=== PATIENT | female | born 1980 | race Caucasian/White ===

== ENCOUNTER 2017-01-24 07:09 | Emergency (ER) | payer BC ==
--- NOTE | 2017-01-24 07:42 | UC ---
Ear Complaint HPI - HPI Summary HPI Summary: 36 yo female with left otalgia x 1 1/2 weeks slight decreased hearing no URI symptoms has been using q-tips - History of Current Complaint Chief Complaint: UCEar Stated Complaint: LEFT EAR PAIN Time Seen by Provider: 01/24/17 07:31 Hx Obtained From: Patient Hx Last Menstrual Period: 2016 Onset/Duration: Gradual Onset, Lasting Weeks Severity Initially: Mild Severity Currently: Moderate Pain Intensity: 7 Pain Scale Used: 0-10 Numeric Aggravating Factors: Nothing Alleviating Factors: Nothing Associated Signs/Symptoms: Positive: Hearing Loss - Allergies/Home Medications Allergies/Adverse Reactions: Allergies Allergy/AdvReac Type Severity Reaction Status Date / Time Sulfamethoxazole Allergy Intermediate VANDANA Verified 01/24/17 07:25 w/Trimethoprim SWELLS [From Bactrim] PMH/Surg Hx/FS Hx/Imm Hx Previously Healthy: Yes Endocrine History Of: Denies: Diabetes, Thyroid Disease, Hyperthyroidism, Hypothyroidism, Dyslipidemia Cardiovascular History Of: Denies: Cardiac Disorders, Hypertension, Pacemaker/ICD, Myocardial Infarction , Congestive Heart Failure, Atrial Fibrillation, Deep Vein Thrombosis, Bleeding Disorders Respiratory History Of: Denies: COPD, Asthma, Bronchitis, Pneumonia, Pulmonary Embolism GI/ History Of: Reports: Kidney Stones Denies: Gastroesophageal Reflux, Ulcer, Gastrointestinal Bleed, Gall Bladder Disease, Diverticulitis, Renal Disease, Urosepsis Neurological History Of: Denies: TIA, CVA, Dementia, Seizures, Migraine Psychological History Of: Denies: Anxiety, Depression, Bipolar Disorder, Schizophrenia, Post Traumatic Stress Disorder Cancer History Of: Denies: Lung Cancer, Colorectal Cancer, Breast Cancer, Prostate Cancer, Cervical Cancer Other History Of: Negative For: HIV, Hepatitis B, Hepatitis C - Surgical History Surgical History: Yes Surgery Procedure, Year, and Place: . TONSILLECTOMY. ablation - Family History Known Family History: Positive: Hypertension Negative: Renal Disease, Blood Disorder - Social History Alcohol Use: Occasionally Substance Use Type: None Smoking Status (MU): Former Smoker When Did the Patient Quit Smoking/Using Tobacco: 10/2013 - Immunization History Most Recent Influenza Vaccination: JUN 2014 Review of Systems Constitutional: Negative Skin: Negative Eyes: Negative ENT: Ear Ache Respiratory: Negative Cardiovascular: Negative Gastrointestinal: Negative Genitourinary: Negative Motor: Negative Neurovascular: Negative Musculoskeletal: Negative Neurological: Negative Psychological: Negative All Other Systems Reviewed And Are Negative: Yes Physical Exam Triage Information Reviewed: Yes Appearance: Well-Appearing, No Pain Distress, Well-Nourished Vital Signs: Initial Vital Signs Temp 98.8 F 01/24/17 07:27 Pulse 80 01/24/17 07:27 Resp 16 01/24/17 07:27 BP 135/98 01/24/17 07:27 Pulse Ox 99 01/24/17 07:27 Eyes: Positive: Conjunctiva Clear ENT: Positive: Pharynx normal, TMs normal, Other: - left tragal tenderness/EAC narrow. Negative: Hearing grossly normal, Pharyngeal erythema, Nasal congestion , Nasal drainage, TM bulging, TM dull, TM red, Tonsillar swelling, Tonsillar exudate, Trismus, Muffled/hoarse voice Dental: Positive: Other: - left TMJ crepitus. Negative: Gross Decay/Caries @, Dental Fracture @ Neck: Positive: Nontender, No Lymphadenopathy Respiratory: Positive: Lungs clear, Normal breath sounds, No respiratory distress, No accessory muscle use Cardiovascular: Positive: RRR, No Murmur Musculoskeletal: Positive: ROM Intact, No Edema Neurological: Positive: Alert Skin Exam: Normal Ear Complaint Course/Dx - Differential Dx/Diagnosis Provider Diagnoses: left TMJ syndrome. left otitis externa Discharge - Discharge Plan Condition: Stable Disposition: HOME Prescriptions: Naproxen [Naproxen 500 MG TABS] 500 mg PO BID PRN #30 tab PRN Reason: Pain Neomyc/Polym/HC 1% OTIC SUSP* [Cortisporin Otic Susp 1%*] 4 drop LEFT EAR QID # 1 btl Patient Education Materials: Otitis Externa (ED), Temporomandibular Disorder ( ED) Referrals: No Primary Care Phys,NOPCP [Primary Care Provider] - Additional Instructions: see your MD in 2 weeks if hearing not back to normal Ice your left TMJ twice daily soft diet see your dentist in follow up if not better in 1-2 weeks
[2017-01-24 07:44] VITALS: BP 135/98
== END 2017-01-24 07:47 | disposition home or self-care (01) ==
LOC: UCCORT 07:09
DX: H60.92 Unspecified otitis externa, left ear (principal); M26.602 Left temporomandibular joint disorder, unspecified; Z88.2 Allergy status to sulfonamides; Z87.891 Personal history of nicotine dependence
CPT/HCPCS: 99212; G0463

== ENCOUNTER 2017-06-10 07:02 | Emergency (ER) | payer BC ==
--- NOTE | 2017-06-10 07:40 | UC ---
Throat Pain/Nasal Leonid HPI - HPI Summary HPI Summary: 36 yo female with a 2 day history of severe sore throat/weakness/poor oral intake/headache/myalgias and N/V - History of Current Complaint Chief Complaint: UCRespiratory Stated Complaint: SORE THROAT,HEADACHE,SWOLLEN NECK,BODYACHES Time Seen by Provider: 06/10/17 07:38 Hx Obtained From: Patient Hx Last Menstrual Period: n/a Onset/Duration: Gradual Onset, Lasting Days Severity: Severe Pain Intensity: 7 Pain Scale Used: 0-10 Numeric Cough: None Associated Signs & Symptoms: Positive: Fever Related History: Prior ENT Surgery, T & A - Epiglottits Risk Factors Epiglottis Risk Factors: Negative - Allergies/Home Medications Allergies/Adverse Reactions: Allergies Allergy/AdvReac Type Severity Reaction Status Date / Time Sulfamethoxazole Allergy Intermediate VANDANA Verified 06/10/17 07:21 w/Trimethoprim SWELLS [From Bactrim] Home Medications: Home Medications Acetaminophen TAB* [Tylenol TAB*] 1,000 mg PO Q6H PRN 06/10/17 [History Confirmed 06/10/17] PMH/Surg Hx/FS Hx/Imm Hx Previously Healthy: Yes Other History Of: Negative For: HIV, Hepatitis B, Hepatitis C - Surgical History Surgical History: Yes Surgery Procedure, Year, and Place: , uterine ablation. TONSILLECTOMY - Family History Known Family History: Positive: Hypertension Negative: Renal Disease, Blood Disorder - Social History Alcohol Use: Occasionally Substance Use Type: None Smoking Status (MU): Former Smoker When Did the Patient Quit Smoking/Using Tobacco: 10/2013 - Immunization History Most Recent Influenza Vaccination: JUN 2014 Review of Systems Constitutional: Fever, Chills, Fatigue Skin: Negative Eyes: Negative ENT: Sore Throat Respiratory: Negative Cardiovascular: Negative Gastrointestinal: Vomiting Genitourinary: Negative Motor: Negative Neurovascular: Negative Musculoskeletal: Myalgia Neurological: Headache Psychological: Negative All Other Systems Reviewed And Are Negative: Yes Physical Exam Triage Information Reviewed: Yes Appearance: Well-Appearing, No Pain Distress, Well-Nourished Vital Signs: Initial Vital Signs Temp 99.9 F 06/10/17 07:17 Pulse 106 06/10/17 07:17 Resp 24 06/10/17 07:17 BP 113/71 06/10/17 07:17 Vital Signs Reviewed: Yes Eyes: Positive: Conjunctiva Clear ENT: Positive: Hearing grossly normal, Pharyngeal erythema. Negative: Nasal congestion, Nasal drainage, Tonsillar swelling, Tonsillar exudate, Trismus, Muffled/hoarse voice Neck: Positive: Supple, Enlarged Nodes @ - (+++) ant cervical Respiratory: Positive: Lungs clear, Normal breath sounds, No respiratory distress Cardiovascular: Positive: RRR, No Murmur, Tachycardia Abdomen Description: Positive: Nontender, No Organomegaly, Soft Bowel Sounds: Positive: Present Neurological: Positive: Alert Psychological Exam: Normal Skin Exam: Normal Re-Evaluation - Re-Evaluation First Eval Re-Evaluation Time: 10:17 Change: Improved Comment: feels much better. pain decreased Throat Pain/Nasal Course/Dx - Differential Dx/Diagnosis Provider Diagnoses: strep throat. dehydration Discharge - Discharge Plan Condition: Stable Disposition: HOME Patient Education Materials: Strep Throat (ED) Forms: *Work Release Referrals: EMELINA Gonzales [Primary Care Provider] - Additional Instructions: recheck in 3 days if not better recheck sooner for worsening symptoms start amox in AM
[2017-06-10] MEDS ORDERED: cefTRIAXone VIAL(*) 1,000 MG in NS 0.9% 50 ML* 50 ML IVPB ONE (07:45)
[2017-06-10] MEDS ORDERED: NS 0.9% 1000 ML* 1,000 ML BOLUS ONE (07:45)
[2017-06-10] MEDS ORDERED: Dexamethasone IV* 4 MG/ML 1 ML (4 MG) IV SLOW PU ONE (07:46)
[2017-06-10] MEDS ORDERED: Ketorolac INJ* 30 MG/ML 1 ML VIAL IV ONE (07:46)
[2017-06-10] MEDS ORDERED: cefTRIAXone VIAL(*) 1,000 MG VIAL ONE (08:08)
[2017-06-10 10:34] VITALS: BP 123/74
== END 2017-06-10 10:43 | disposition home or self-care (01) ==
LOC: UCCORT 07:02
DX: J02.0 Streptococcal pharyngitis (principal); E86.0 Dehydration; Z88.2 Allergy status to sulfonamides; Z87.891 Personal history of nicotine dependence
CPT/HCPCS: 87651; 96361; 96365; 96375; 99212; G0463; J0696; J1100; J1885

== ENCOUNTER 2018-01-07 12:01 | Emergency (ER) | payer BC ==
--- OUTSIDE RECORDS SUMMARY | 2018-01-07 12:24 | XMS REPORT ---
:1980 External Reference #:[id number] Author Organization [facility] Address [address] [place] [address] Phone [phone] Care Team Providers Name Role Phone Krystal Fisher MD Care Team Information Research Professor Of Biostatistics Unavailable Krystal Fisher MD Primary Care Physician Unavailable Payers Type Date Identification Numbers Payment Provider Subscriber Commercial Policy Number: [id number] AMARJIT Ho PayID: [id number] [address] [place] [address] Commercial Expires: 2017 Policy Number: [id number] AMARJIT Ho PayID: [id number] [place] [address] Problems Description No Information Family History Date Family Member(s) Problem(s) Comments General None General Two brothers that are Diabetics Mother Heart Disease Social History Type Date Description Comments 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 every day Meclizine HCL / Active Tablets 25mg 60tabs 1 po qid Unknown 0000 prn Macrodantin / Hx Capsules 50mg Unknown 0000 - 2017 Nuvaring / Hx Ring 0.12-0.015 Unknown 0000 - mg/24HR 2017 Zofran / Hx Tablets 4mg 20tabs q6h prn Unknown 0000 - nausea 2017 Vital Signs Date Vital Result Comment 12/19/2017 Weight 158.12 lb Height 63 inches 5'3" BMI (Body Mass Index) 28.0 kg/m2 BP Systolic 149 mmHg BP Diastolic 86 mmHg Heart Rate 101 /min O2 % BldC Oximetry 99 % room air Body Temperature 99.8 F Pain Level 0 06/22/2010 Weight 113.00 lb Height 63 inches 5'3" BMI (Body Mass Index) 20.0 kg/m2 BP Systolic 118 mmHg BP Diastolic 64 mmHg Heart Rate 74 /min O2 % BldC Oximetry 98 % Body Temperature 97.1 F Results Description No Information Procedures Description No Information Encounters Type Date Location Provider CPT E/M Dx Office Visit 12/19/2017 2:00p [place] [id number] R42 J34.3 Office Visit 06/22/2010 11:00a [place] [address] 780.4 Plan of Care Future Appointment(s):01/11/2018 9:30 am - Nola Traylor NP at Main Office
--- OUTSIDE RECORDS SUMMARY | 2018-01-07 12:24 | XMS REPORT ---
:1980 External Reference #:[id number] Author Organization [facility] Address [address] [place] [address] Phone [phone] Care Team Providers Name Role Phone Krystal Fisher MD Care Team Information Configuration Management Specialist Unavailable Krystal Fisher MD Primary Care Physician Unavailable Payers Type Date Identification Numbers Payment Provider Subscriber Commercial Policy Number: [id number] AMARJIT Ho PayID: [id number] [address] [place] [address] Commercial Expires: 2017 Policy Number: [id number] AMARJIT Ho PayID: [id number] [address] [address] [place] [address] Problems Description No Information Family History Date Family Member(s) Problem(s) Comments General None Social History Type Date Description Comments 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 Cigarette Use currently smokes 1/2 Pack Daily ETOH Use Rarely consumes alcohol Recreational Drug Use Has Used In Past Allergies, Adverse Reactions, Alerts Date Description Reaction Status Severity Comments 06/22/2010 Bactrim active Tongue Swelling Medications Medication Date Status Form Strength Qnty SIG Indications Ordering Provider Meclizine HCL Active Tablets 25mg 60tabs 1 po qid Unknown 000 prn Macrodantin 0 Hx Capsules 50mg Unknown 000 - 018 Nuvaring 0 Hx Ring 0.12-0.015m Unknown 000 - g/24HR 018 Zofran 0 Hx Tablets 4mg 20tabs q6h prn Unknown 000 - nausea 018 Vital Signs Date Vital Result Comment 12/19/2017 [...] Location Provider CPT E/M Dx Office Visit 06/22/2010 11:00a [place] [address] 780.4 Plan of Care No Information Available
[2018-01-07 12:32] VITALS: BP 130/92
--- NOTE | 2018-01-07 12:43 | UC ---
Throat Pain/Nasal Leonid HPI - HPI Summary HPI Summary: Sore throat for 3 day has had fevers chills and cold sweats - History of Current Complaint Chief Complaint: UCRespiratory Stated Complaint: SORE THROAT,LOSS OF VOICE Time Seen by Provider: 01/07/18 12:24 Hx Obtained From: Patient Hx Last Menstrual Period: no menses since ablasion 2016 ?: No Onset/Duration: Sudden Onset, Lasting Days - 3, Still Present Severity: Moderate Pain Intensity: 6 Pain Scale Used: 0-10 Numeric Cough: None Associated Signs & Symptoms: Positive: Fever - Allergies/Home Medications Allergies/Adverse Reactions: Allergies Allergy/AdvReac Type Severity Reaction Status Date / Time MS Sulfamethoxazole Allergy Intermediate VANDANA Verified 06/10/17 07:21 w/Trimethoprim SWELLS [From Bactrim] Home Medications: Home Medications Ibuprofen TAB* [Advil TAB*] 600 mg PO Q6H PRN 01/07/18 [History Confirmed ] PMH/Surg Hx/FS Hx/Imm Hx Previously Healthy: Yes Other History Of: Negative For: HIV, Hepatitis B, Hepatitis C - Surgical History Surgical History: Yes Surgery Procedure, Year, and Place: , uterine ablation. TONSILLECTOMY - Family History Known Family History: Positive: Hypertension Negative: Renal Disease, Blood Disorder - Social History Occupation: Employed Full-time Lives: With Family Alcohol Use: Occasionally Substance Use Type: None Smoking Status (MU): Former Smoker When Did the Patient Quit Smoking/Using Tobacco: 10/2013 - Immunization History Most Recent Influenza Vaccination: JUN 2014 Review of Systems Constitutional: Fever, Chills, Fatigue Skin: Negative Eyes: Negative ENT: Sore Throat Respiratory: Negative Cardiovascular: Negative Gastrointestinal: Negative Genitourinary: Negative Motor: Negative Neurovascular: Negative Musculoskeletal: Negative Neurological: Headache Psychological: Negative Is Patient Immunocompromised?: No All Other Systems Reviewed And Are Negative: Yes Physical Exam Triage Information Reviewed: Yes Appearance: Well-Nourished, Ill-Appearing, Pain Distress Vital Signs: Initial Vital Signs Temp 98.2 F 01/07/18 12:24 Pulse 81 01/07/18 12:24 Resp 16 01/07/18 12:24 BP 130/92 01/07/18 12:24 Pulse Ox 100 01/07/18 12:24 Vital Signs Reviewed: Yes Eye Exam: Normal Eyes: Positive: Conjunctiva Clear ENT Exam: Normal ENT: Positive: Normal ENT inspection, Hearing grossly normal, Pharyngeal erythema, TMs normal, Uvula midline. Negative: Nasal congestion, Tonsillar swelling, Tonsillar exudate, Trismus, Muffled voice, Hoarse voice, Dental tenderness, Sinus tenderness Dental Exam: Normal Neck exam: Normal Neck: Positive: Supple, Nontender, No Lymphadenopathy Respiratory Exam: Normal Respiratory: Positive: Chest non-tender, Lungs clear, Normal breath sounds, No respiratory distress, No accessory muscle use Cardiovascular Exam: Normal Cardiovascular: Positive: RRR, No Murmur, Pulses Normal, Brisk Capillary Refill Musculoskeletal Exam: Normal Musculoskeletal: Positive: Strength Intact, ROM Intact, No Edema Neurological Exam: Normal Neurological: Positive: Alert, Muscle Tone Normal Psychological Exam: Normal Skin Exam: Normal Diagnostics - Laboratory Diagnostic Studies Completed/Ordered: RST (-) Throat Pain/Nasal Course/Dx - Course Assessment/Plan: amoxicillin, ibuprofen increase fluids follow with pcp prn ( will treat clinically ) - Differential Dx/Diagnosis Provider Diagnoses: Pharyngitis Discharge - Discharge Plan Condition: Stable Disposition: HOME Prescriptions: Amoxicillin PO (*) [Amoxicillin 875 MG (*)] 875 mg PO BID #20 tab Patient Education Materials: Ibuprofen (By mouth), Pharyngitis (ED) Referrals: EMELINA Gonzales [Primary Care Provider] - If Needed
== END 2018-01-07 13:12 | disposition home or self-care (01) ==
LOC: UCCORT 12:01
DX: J02.9 Acute pharyngitis, unspecified (principal); Z88.1 Allergy status to other antibiotic agents
CPT/HCPCS: 87651; 99212; G0463

== ENCOUNTER 2019-10-21 11:17 | Emergency (ER) | payer BC ==
[2019-10-21 12:14] VITALS: BP 118/78
--- NOTE | 2019-10-21 13:08 | UC ---
FLU HPI - HPI Summary HPI Summary: Patient is a 39yo female presenting with chills, congestion, sweats, an body aches x2 days. Also notes dry cough on and off. Patient states she took nyquil last night and tylenol this morning without much relief. Notes decreased appetite as well. States her son has a cold, but not like what she has and she is concerned for the flu. Denies n/v. Notes subjective fevers. Notes LEVIN. - History of Current Complaint Chief Complaint: UCRespiratory Stated Complaint: CHILLS,HEADACHE,FATIGUE,COUGH Hx Obtained From: Patient Hx Last Menstrual Period: uterine ablation Onset/Duration: Sudden Onset, Lasting Days Pain Intensity: 9 Pain Scale Used: 0-10 Numeric - Allergy/Home Medications Allergies/Adverse Reactions: Allergies Allergy/AdvReac Type Severity Reaction Status Date / Time sulfamethoxazole Allergy Tongue Verified 10/21/19 12:10 [From Bactrim] Swelling trimethoprim [From Bactrim] Allergy Tongue Verified 10/21/19 12:10 Swelling PMH/Surg Hx/FS Hx/Imm Hx Previously Healthy: Yes Other History Of: Negative For: HIV, Hepatitis B, Hepatitis C - Surgical History Surgical History: Yes Surgery Procedure, Year, and Place: Uterine Ablation, 01/07/17, [place]; C- Section, 07/07/14, [place]; Tonsillectomy, ~1984, [place] - Family History Known Family History: Positive: Hypertension Negative: Renal Disease, Blood Disorder - Social History Alcohol Use: Occasionally Substance Use Type: None Smoking Status (MU): Former Smoker Length of Time of Smoking/Using Tobacco: 1 PPD x 10 Years When Did the Patient Quit Smoking/Using Tobacco: 10/2013 - Immunization History Most Recent Influenza Vaccination: JUN 2014 Review of Systems All Other Systems Reviewed And Are Negative: Yes Constitutional: Positive: Fever - subjective, Chills, Fatigue ENT: Positive: Sinus Congestion. Negative: Sore Throat Respiratory: Positive: Negative, Cough - dry on/off Cardiovascular: Positive: Negative Gastrointestinal: Positive: Negative Musculoskeletal: Positive: Myalgia Neurological: Positive: Headache Physical Exam Triage Information Reviewed: Yes Appearance: No Pain Distress, Well-Nourished, Ill-Appearing Vital Signs: Initial Vital Signs Temp 99.6 F 10/21/19 12:10 Pulse 95 10/21/19 12:10 Resp 18 10/21/19 12:10 BP 118/78 10/21/19 12:10 Pulse Ox 100 10/21/19 12:10 Lab Results 10/21/19 Range/Units 13:31 Influenza A (Rapid) Positive A (Negative) Vital Signs Reviewed: Yes Eyes: Positive: Conjunctiva Clear ENT: Positive: Hearing grossly normal, Nasal congestion, TMs normal, Uvula midline. Negative: Pharyngeal erythema, Nasal drainage, Tonsillar swelling, Tonsillar exudate Neck exam: Normal Neck: Positive: Supple, Nontender, No Lymphadenopathy Respiratory Exam: Normal Respiratory: Positive: Lungs clear, Normal breath sounds, No respiratory distress. Negative: Crackles, Rhonchi, Stridor, Wheezing Cardiovascular Exam: Normal Cardiovascular: Positive: RRR Neurological: Positive: Alert Psychological: Positive: Age Appropriate Behavior Flu Course/Dx - Course Course Of Treatment: Influenza A positive. I treated with tamiflu and instructed to continue with symptomatic treatment. Instructed to follow up with pcp if symptoms persist. Patient voiced understanding and agreed with treatment plan. - Differential Dx/Diagnosis Provider Diagnosis: Influenza A Discharge ED - Sign-Out/Discharge Documenting (check all that apply): Patient Departure All imaging exams completed and their final reports reviewed: No Studies - Discharge Plan Condition: Stable Disposition: HOME Prescriptions: Oseltamivir CAP* [Tamiflu CAP*] 75 mg PO BID #10 cap Patient Education Materials: Influenza (ED) Forms: *Work Release Referrals: Iraida Moore MD [Primary Care Provider] - If Needed Additional Instructions: As discussed, you tested positive for influenza A today. Take tamiflu as prescribed. You may continue to take tylenol as directed for fever and pain relief. Increase your fluid intake. Follow up with your primary care provider if symptoms do not resolve within 5-7 days. - Billing Disposition and Condition Condition: STABLE Disposition: Home
[2019-10-21 13:35] LABS: Influenza A Molecular POSITIVE (Negative)
== END 2019-10-21 13:55 | disposition home or self-care (01) ==
LOC: UCCORT 11:17
DX: J09.X2 Influenza due to identified novel influenza A virus with other respiratory manifestations (principal); Z88.2 Allergy status to sulfonamides; Z88.1 Allergy status to other antibiotic agents; Z87.891 Personal history of nicotine dependence
CPT/HCPCS: 99212; G0463